=== PATIENT | male | born 1985 | race Two or more races ===

== ENCOUNTER 2017-03-11 11:29 | Day surgery (SDC) | payer OTHER ==
[2017-03-11] MEDS ORDERED: LIDOCAINE 100 MG SYRINGE (13:15)
[2017-03-11] MEDS ORDERED: PROPOFOL 60 ML (13:15)
== END 2017-03-11 14:25 | disposition home or self-care (01) ==
LOC: GIL 11:29
DX: K21.9 Gastro-esophageal reflux disease without esophagitis (principal); K29.70 Gastritis, unspecified, without bleeding; I10 Essential (primary) hypertension; E66.9 Obesity, unspecified; Z68.31 Body mass index [BMI] 31.0-31.9, adult
CPT/HCPCS: 43239; 87081